=== PATIENT | male | born 1980 | race Caucasian/White ===

== ENCOUNTER → 2017-04-07 | Outpatient (CLI) | payer SELFPAY ==
--- NOTE | 2017-04-07 12:51 | REP ---
PA and lateral chest: There are no comparisons. The lung franklin are clear. The cardiac size is normal The jenniffer, mediastinum, and bony thorax are unremarkable. Impression: Negative PA and lateral chest. There is no radiopaque foreign body Signed by Carlos Armas MD 04/07/2017 12:42 P
== END ==
LOC: M WUC 10:54
PROVIDERS: ATTEND Dentist
DX: T18.9XXA Foreign body of alimentary tract, part unspecified, initial encounter (principal); X58.XXXA Exposure to other specified factors, initial encounter; Y92.89 Other specified places as the place of occurrence of the external cause; Y99.9 Unspecified external cause status